=== PATIENT | female | born 1935 | race Caucasian/White ===

== ENCOUNTER 2016-03-31 12:05 | Outpatient (CLI) ==
--- NOTE | 2016-03-31 13:11 | US ---
EXAM: Right lower extremity venous Doppler sonogram. CLINICAL INDICATION: Right lower extremity pain and edema with varicose veins. FINDINGS: There is normal compression, spontaneous color Doppler flow and augmentation demonstrated between th e region of the trifurcation through to the right common femoral vein. The above knee portion of the right greater saphenous vein is patent. However, there is superficial thrombus within the right greater saphenous vein below the level of the knee. IMPRESSION: 1. No right lower extremity DVT. 2. The superficial thrombophlebitis within the right greater saphenous vein below the level of the knee.
== END 2016-03-31 12:06 | disposition home or self-care (01) ==
LOC: RAD 12:05
PROVIDERS: ATTEND Family Medicine
DX: M79.604 Pain in right leg (principal); R60.0 Localized edema; I83.90 Asymptomatic varicose veins of unspecified lower extremity; I80.9 Phlebitis and thrombophlebitis of unspecified site

== ENCOUNTER 2016-08-02 06:34 | Day surgery (SDC) ==
[2016-08-02] MEDS ORDERED: LIDOCAINE 1% 20 ML MDV ID ONE (07:26)
[2016-08-02] MEDS ORDERED: LIDOCAINE 1% 20 ML MDV ONE (07:26)
[2016-08-02] MEDS ORDERED: DIPRIVAN 20 ML VIAL IVP ONE (08:42)
[2016-08-02] MEDS ORDERED: VERSED ONE (08:42)
[2016-08-02 10:33] VITALS: BP 126/70; TEMP 97.9
--- NOTE | 2016-08-02 13:21 | OP ---
PROCEDURE: COLONOSCOPY TO THE CECUM WITH SNARE POLYPECTOMY. ENDOSCOPIST: Annette HERNANDEZ M.D. INDICATION: HISTORY OF ADENOMATOUS POLYPS/LAST EXAM PRIOR 5 YEARS PRIOR TO THIS DATE. INSTRUMENT: Betterment-190. MEDICATION: PER ANESTHESIA. PROCEDURE: The patient was positioned for colonoscopy. The digital rectal exam was negative. The colonoscope was inserted through the anus and advanced to the anastomosis. The patient has undergone prior right colectomy. There was a small polyp at 20 cm removed using snare cautery. The retroflex exam was otherwise normal. Withdrawal time 8 minutes and 27 seconds. PLAN: 1. Review pathology. 2. Repeat for surveillance in 5 years. CC: DR. SUDHAKAR CORRALES
== END 2016-08-02 10:00 | disposition home or self-care (01) ==
LOC: SURG 06:34
PROVIDERS: ATTEND Internal Medicine Gastroenterology
DX: Z09 Encounter for follow-up examination after completed treatment for conditions other than malignant neoplasm (principal); Z86.010 Personal history of colon polyps; D12.7 Benign neoplasm of rectosigmoid junction; K57.30 Diverticulosis of large intestine without perforation or abscess without bleeding; Z90.49 Acquired absence of other specified parts of digestive tract; Z98.0 Intestinal bypass and anastomosis status

== ENCOUNTER 2017-01-25 09:28 | Outpatient (CLI) ==
--- NOTE | 2017-01-26 09:12 | MAMMO ---
EXAM: Bilateral digital screening mammogram (2-D and 3-D) History: Screening Comparison: Bilateral mammogram 01/19/2016 Findings: MLO and CC views of bilateral breasts demonstrate scattered fibroglandular breast parenchy ma. CAD was reviewed by the radiologist. Tomosynthesis was performed. Stable benign bilateral vasc ular calcifications. Biopsy clip again seen within the left breast. There are no dominant masses, n o suspicious microcalcifications and no architectural distortions Impression: Benign stable mammogram. Recommend followup routine screening mammography in 1 year. BIRADS 2
== END 2017-01-25 09:29 | disposition home or self-care (01) ==
LOC: RAD 09:28
PROVIDERS: ATTEND Family Medicine
DX: Z12.31 Encounter for screening mammogram for malignant neoplasm of breast (principal)
CPT/HCPCS: 77067

== ENCOUNTER 2017-09-02 19:33 | Emergency (ER) ==
[2017-09-02 19:44] VITALS: BP 184/96; TEMP 98.5; BMI 21.9
[2017-09-02] MEDS ORDERED: ZOFRAN 4 MG/2 ML IM STA (19:57)
[2017-09-02] MEDS ORDERED: DEMEROL 50 MG/ML VIAL IM STA (19:57)
--- NOTE | 2017-09-02 20:40 | DI ---
And pelvis and bilateral hips. HISTORY: Left hip pain. FINDINGS: Fluid the pelvis. Lateral views both hips. There are no acute or healing fractures. The re are no lytic or blastic lesions. The soft tissues are normal. IMPRESSION: Normal bilateral hips.
--- NOTE | 2017-09-02 20:57 | ED.PDOC ---
General ED Provider: Dr. LISA LARES Chief Complaint: Hip Pain/Injury Stated Complaint: patient is doing pool therapy and after that she did the lawn mowing, then started having left hip pain. Took ASA, and Tylenol no help so came for the evaluation with daughter. Time Seen by Physician: 20:55 Mode of Arrival: Wheelchair Information Source: Patient Primary Care Provider: SUDHAKAR KIMBLE Nursing and Triage Documentation Reviewed and Agree: Yes Does patient meet sepsis criteria?: No If yes, has appropriate treatment been initiated?: No System Inflammatory Response Syndrome: Not Applicable Sepsis Protocol: For patient's 13 years and over: Temp is 96.8 and below OR 101 and greater Pulse >90 BPM Resp >20/minute Acutely Altered Mental Status Are patient's symptoms suggestive of a new infection, such as: -Pneumonia -Skin, Soft Tissue -Endocarditis -UTI -Bone, Joint Infection -Implantable Device -Acute Abdominal Infection -Wound Infection -Meningitis -Blood Stream Catheter Infection -Unknown Musculoskeletal Complaint Exam - Hip/Pelvis Complaint/Exam Location of Pain: Reports: Left Mechanism of Injury: Reports: No known trauma Symptoms Are: Still present Initial Severity: Moderate Current Severity: Moderate Location: Reports: Discrete Character: Reports: Aching Aggravating: Reports: Movement Alleviating: Reports: None Associated Signs and Symptoms: Denies: Swelling, Redness, Bruising, Fever, Weakness, Dizziness, Syncope, Abdominal pain, Knee pain Related History: Reports: Similar episode Able to Bear Weight: Yes Septic Arthritis Risk Factors: Reports: None Related Surgical History: Reports: None Tenderness: Present: Greater Trochanter Differential Diagnoses: Arthritis, Bursitis, Sprain Review of Systems - Review Of Systems Constitutional: Reports: No symptoms Eyes: Reports: No symptoms Ears, Nose, Mouth, Throat: Reports: No symptoms Respiratory: Reports: No symptoms Cardiac: Reports: No symptoms GI: Reports: No symptoms : Reports: No symptoms Musculoskeletal: Reports: Joint pain Skin: Reports: No symptoms Neurological: Reports: No symptoms Endocrine: Reports: No symptoms Hematologic/Lymphatic: Reports: No symptoms All Other Systems: Reviewed and Negative Past Medical History - Past Medical History Previously Healthy: Yes Endocrine: Reports: Hypothyroid Cardiovascular: Reports: Hypertension Respiratory: Reports: None Hematological: Reports: None Gastrointestinal: Reports: None Genitourinary: Reports: None Neuro/Psych: Reports: None Musculoskeletal: Reports: None Cancer: Reports: Colon Last Menstrual Period: unknown - Surgical History General Surgical History: Reports: Hysterectomy - Family History Family History: Reports: None - Social History Smoking Status: Never smoker Hx Substance Use: No Alcohol Screening: Occasionally Physical Exam - Physical Exam Appearance: Well-appearing, No pain distress, Well-nourished Eyes: SWAPNA, EOMI, Conjunctiva clear ENT: Ears normal, Nose normal, Oropharynx normal Respiratory: Airway patent, Breath sounds clear, Breath sounds equal, Respirations nonlabored Cardiovascular: RRR, Pulses normal, No rub, No murmur GI/: Soft, Nontender, No masses, Bowel sounds normal, No Organomegaly Musculoskeletal: Normal strength, No edema, No calf tenderness, Limited ROM, Limited strength Skin: Warm, Dry, Normal color Neurological: Sensation intact, Motor intact, Reflexes intact, Cranial nerves intact, Alert, Oriented Psychiatric: Affect appropriate, Mood appropriate Interpretation - Radiology Interpretation Radiology Interpretation By: Radiologist Radiology Results: Negative Critical Care Note - Critical Care Note Total Time (mins): 30 Course - Course Orders, Labs, Meds: Orders Category Date Time Status Meperidine HCl/Pf [Demerol 50 mg/ml Vial] MEDS 09/02/17 19:57 Discontinued 25 mg IM ONCE STA Ondansetron HCl/Pf [Zofran 4 mg/2 ml] MEDS 09/02/17 19:57 Discontinued 4 mg IM ONCE STA PELVIS & KAYLA HIPS Stat RADS 09/02/17 19:57 Completed Medications Discontinued Medications Generic Name Dose Route Start Last Admin Trade Name Freq PRN Reason Stop Dose Admin Meperidine HCl 25 mg 09/02/17 19:57 09/02/17 20:11 Demerol 50 Mg/Ml Vial IM 09/02/17 19:58 25 mg ONCE STA Administration Ondansetron HCl 4 mg 09/02/17 19:57 09/02/17 20:11 Zofran 4 Mg/2 Ml IM 09/02/17 19:58 4 mg ONCE STA Administration Vital Signs: Temp Pulse Resp BP Pulse Ox 09/02/17 19:34 98.5 F 74 20 184/96 H 96 Departure - Departure Time of Disposition: 20:57 Disposition: HOME SELF-CARE Discharge Problem: Hip pain Instructions: Hip Sprain (ED) Condition: Stable Pt referred to PMD for follow-up: Yes IPMP verified?: Yes Additional Instructions: Rest Hot pack f/u with PMD Prescriptions: Hydrocodone/Acetaminophen [[place] 5-325 Tablet] 1 tab PO TID PRN #10 tablet PRN Reason: PAIN Prednisone 10 mg PO BIDWM #14 tablet Allergies/Adverse Reactions: Allergies No Known Allergies Allergy (Verified 09/02/17 19:44) Home Medications: Ambulatory Orders Aspirin [[place] Aspirin] 81 mg PO DAILY 07/30/16 Hydrochlorothiazide 12.5 mg PO DAILY 07/30/16 Levothyroxine Sodium [Synthroid] 100 mcg PO QDAC 07/30/16 Quinapril HCl 5 mg PO DAILY 07/30/16 Hydrocodone/Acetaminophen [[place] 5-325 Tablet] 1 tab PO TID PRN #10 tablet 09/02 Prednisone 10 mg PO BIDWM #14 tablet 09/02/17 Disposition Discussed With: Patient, Family
== END 2017-09-02 21:09 | disposition home or self-care (01) ==
LOC: ED 19:33
DX: M25.552 Pain in left hip (principal)
CPT/HCPCS: 96372; 99282

== ENCOUNTER 2017-09-04 13:52 | Emergency (ER) ==
[2017-09-04 13:52] VITALS: BMI 21.9
[2017-09-04 13:59] VITALS: BP 169/90; TEMP 98.2
[2017-09-04] MEDS ORDERED: DILAUDID IM STA (14:07)
[2017-09-04] MEDS ORDERED: ZOFRAN 4 MG/2 ML IM STA (14:08)
--- NOTE | 2017-09-04 14:49 | CT ---
EXAM: CT lumbar spine without contrast HISTORY: Low back pain. TECHNIQUE: Multi-slice transaxial helical with coronal and sagittal reformatted views. COMPARISON: None FINDINGS: Straightening of the lumbar spine is seen. The visualized vertebral body heights appear preserved. Mild multilevel lumbar disc space narrowing is present. Moderate disc space narrowing is present at L5-S1. No significant listhesis or spondylolysis is seen. Mild multilevel lumbar facet osteoarthrit is is present. Small multilevel endplate osteophytosis is present. The visualized lung bases appear clear. Atherosclerosis is present. Surgical clips are seen within the upper abdomen. Otherwise the visualized retroperitoneum appears unremarkable. Segmental analysis: T12-L1: No significant central canal or neural foraminal stenosis. L1-L2: Minimal circumferential disc bulge is seen which minimally indents the ventral CSF space. No significant neural foraminal stenosis is seen. L2-L3: A small circumferential disc bulge is seen which results in mild narrowing of the central yazan l. Minimal bilateral neural foraminal narrowing is present. L3-L4: There is mild narrowing of the central canal secondary to circumferential disc bulge. Minimal bilateral neural foraminal narrowing is present. L4-L5: There is mild narrowing of the central canal secondary to circumferential disc bulge as well a s hypertrophic bilateral facet osteoarthritis and thickening of the ligamentum flavum. There is tria ngulation of the thecal sac. Minimal bilateral neural foraminal narrowing is present. L5-S1: Congenital shortening of the pedicles is seen which predisposes to a small central canal. The re is minimal narrowing of the central canal secondary to posterior disc osteophyte complex. Moderat e left and mild right neural foraminal narrowing is present. IMPRESSION: 1. No acute osseous abnormality. 2. Multilevel lumbar disc disease as detailed above, worst at L5-S1. 3. Mild multilevel central canal narrowing. 4. Multilevel neural foraminal narrowing, worst at L5-S1. 5. Mild multilevel lumbar facet osteoarthritis. 6. 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
--- NOTE | 2017-09-04 14:55 | CT ---
EXAM: Noncontrast CT pelvis. HISTORY: Left hip pain. Comparison: Plain films of the hip and pelvis from 09/02/2017. Technique: Noncontrast CT the pelvis was performed with axial coronal and sagittal reconstructions obtained. Findings: No definite acute fractures or dislocations are identified at the bony pelvis or bilateral hips. The bilateral hip joint spaces appear preserved. Mild degenerative irregularity is seen at the pubic sy mphysis. Mild degenerative sclerosis is seen at the bilateral sacroiliac joints. Degenerative franco es are seen at the lower lumbar spine. There is a sclerotic focus seen within the posterior aspect the left bony acetabulum measuring 8 mm i n diameter for instance at coronal image number 39. Surgical clips are seen at the right lower abdomen/pelvis. There is a 2.6 x 2.3 cm cystic structure seen at the right adnexal region of the pelvis in the expect ed distribution of the right ovary at axial image number 43. Device is seen within the central pelvis which may represent a pessary device. Soft tissue evaluation otherwise demonstrate soft tissue atherosclerotic arterial vascular calcificat ions. Suture material seen at the partially visualized colon. Impression: 1. No definite acute fractures or dislocations are identified at the bony pelvis or bilateral hips. 2. Degenerative changes as detailed. 3. Probable pessary device within the pelvis. 4. There is a 8 mm sclerotic focus seen within the posterior left bony acetabulum which may represent a prominent sized bone island but would recommend either interval follow up in [address] ability or bone scan correlation to exclude blastic activity to exclude any evidence of underlying bl astic lesion. 5. Postsurgical changes as detailed. 6. Right adnexal pelvic cystic structure measuring 2.6 x 2.3 cm in diameter. Recommend pelvic ultra sound follow- up evaluation and gynecology clinical follow-up evaluation to exclude any evidence of a cystic ovaria n neoplasm as the cause for an adnexal cystic structure in a post menopausal patient.
--- NOTE | 2017-09-04 15:44 | ED.PDOC ---
General ED Provider: Dr. STEFANIA UMANA-ER Chief Complaint: Hip Pain/Injury Stated Complaint: my back is hurting so bad i cant walki--i was put on steroids and pain meds 2 days ago and its getting worse Time Seen by Physician: 13:55 Mode of Arrival: Wheelchair Information Source: Patient, Family Exam Limitations: No limitations Primary Care Provider: SUDHAKAR JUNE Nursing and Triage Documentation Reviewed and Agree: Yes Does patient meet sepsis criteria?: No System Inflammatory Response Syndrome: Not Applicable Sepsis Protocol: For patient's 13 years and over: Temp is 96.8 and below OR 101 and greater Pulse >90 BPM Resp >20/minute Acutely Altered Mental Status Are patient's symptoms suggestive of a new infection, such as: -Pneumonia -Skin, Soft Tissue -Endocarditis -UTI -Bone, Joint Infection -Implantable Device -Acute Abdominal Infection -Wound Infection -Meningitis -Blood Stream Catheter Infection -Unknown Musculoskeletal Complaint Exam - Back Pain Complaint/Exam Mechanism of Injury: Reports: No known trauma Onset/Duration: several days Symptoms Are: Still present Timing: Constant Episodes Lasting: Days Initial Severity: Mild Current Severity: Severe Location: Reports: Discrete Character: Reports: Dull, Aching Aggravating: Reports: Movements, Lifting, Bending, Walking Alleviating: Reports: None Associated Signs and Symptoms: Reports: Numbness, Tingling Focal Tenderness: Yes Paraspinal Muscle Tenderness: No Paraspinal Muscle Spasm: No Scoliosis: No Lordosis: No Kyphosis: No SLR Test: Right Negative, Left Negative Hip Motion Testing Pain: Right Negative, Left Negative Focal Weakness: Present: None Focal Sensory Loss: Present: None Gait: Present: Unable Differential Diagnoses: Herniated Disk, Neoplasm Review of Systems - Review Of Systems Constitutional: Reports: No symptoms Eyes: Reports: No symptoms Ears, Nose, Mouth, Throat: Reports: No symptoms Respiratory: Reports: No symptoms Cardiac: Reports: No symptoms GI: Reports: No symptoms : Reports: No symptoms Musculoskeletal: Reports: Back pain Skin: Reports: No symptoms Neurological: Reports: No symptoms Endocrine: Reports: No symptoms Hematologic/Lymphatic: Reports: No symptoms All Other Systems: Reviewed and Negative Past Medical History - Past Medical History Previously Healthy: Yes Endocrine: Reports: Hypothyroid Cardiovascular: Reports: Hypertension Respiratory: Reports: None Hematological: Reports: None Gastrointestinal: Reports: None Genitourinary: Reports: None Neuro/Psych: Reports: None Musculoskeletal: Reports: None Cancer: Reports: Colon Last Menstrual Period: none - Surgical History General Surgical History: Reports: Hysterectomy - Family History Family History: Reports: None - Social History Smoking Status: Never smoker Hx Substance Use: No Alcohol Screening: None Physical Exam - Physical Exam Appearance: Well-appearing Pain Distress: Moderate Eyes: SWAPNA, EOMI, Conjunctiva clear ENT: Ears normal, Nose normal, Oropharynx normal Neck: Supple Respiratory: Airway patent, Breath sounds clear, Breath sounds equal, Respirations nonlabored Cardiovascular: RRR, Pulses normal, No rub, No murmur GI/: Soft Musculoskeletal: Limited ROM, Limited strength Skin: Warm, Dry, Normal color Neurological: Sensation intact, Motor intact, Reflexes intact, Cranial nerves intact, Alert, Oriented Psychiatric: Affect appropriate, Mood appropriate Interpretation - Radiology Interpretation Radiology Interpretation By: Radiologist Radiology Results: Negative Exam Interpreted: CT Scan Physician Notification - Case Discussed Physician Notified: dr [email or web address] Time of Notification: 14:00 Critical Care Note - Critical Care Note Total Time (mins): 0 Course - Course Orders, Labs, Meds: Orders Category Date Time Status Hydromorphone HCl [Dilaudid] MEDS 09/04/17 14:07 Discontinued 1 mg IM ONCE STA Ondansetron HCl/Pf [Zofran 4 mg/2 ml] MEDS 09/04/17 14:08 Discontinued 4 mg IM ONCE STA CT LUMBAR SPINE W/O CONTRAST Stat RADS 09/04/17 14:[address] PELVIS W/O CONTRAST Stat RADS 09/04/17 14:06 Completed Medications Discontinued Medications Generic Name Dose Route Start Last Admin Trade Name Freq PRN Reason Stop Dose Admin Hydromorphone HCl 1 mg 09/04/17 14:07 09/04/17 14:21 Dilaudid IM 09/04/17 14:08 1 mg ONCE STA Administration Ondansetron HCl 4 mg 09/04/17 14:08 09/04/17 14:24 Zofran 4 Mg/2 Ml IM 09/04/17 14:09 4 mg ONCE STA Administration Vital Signs: Temp Pulse Resp BP Pulse Ox 09/04/17 13:52 98.2 F 76 18 169/90 H 96 Departure - Departure Time of Disposition: 15:44 Disposition: TSF SHORT-TRM HOSP Discharge Problem: Sciatica Qualifiers: Laterality: unspecified laterality Qualified Code(s): M54.30 - Sciatica, unspecified side Instructions: Lumbar Radiculopathy (ED) Condition: Good Pt referred to PMD for follow-up: No IPMP verified?: No Allergies/Adverse Reactions: Allergies No Known Allergies Allergy (Verified 09/04/17 13:59) Home Medications: Ambulatory Orders Aspirin [[facility] Aspirin] 81 mg PO DAILY 07/30/16 Hydrochlorothiazide 12.5 mg PO DAILY 07/30/16 Levothyroxine Sodium [Synthroid] 100 mcg PO QDAC 07/30/16 Quinapril HCl 5 mg PO DAILY 07/30/16 Hydrocodone/Acetaminophen [[place] 5-325 Tablet] 1 tab PO TID PRN #10 tablet 09/02 Prednisone 10 mg PO BIDWM #14 tablet 09/02/17 Transfer Form Completed: Yes Disposition Discussed With: Patient, Family
== END 2017-09-04 16:08 | disposition short-term general hospital (02) ==
LOC: ED 13:52
DX: M54.30 Sciatica, unspecified side (principal)
CPT/HCPCS: 96372; 99285

== ENCOUNTER 2017-10-27 14:00 | Outpatient (RCR) ==
--- NOTE | 2017-10-05 08:10 | RS.OPPTEV2 ---
Date of Note: 10/03/17 Visit #: 1 Date of Evaluation: 10/03/17 Payer Source: MEDICARE Treatment Diagnosis: Left hip pain, Left LE paresthesia History of Condition/Mechanism of Injury:: Reports symptoms began approximately three weeks ago, after mowing her yard. After a few hours, she reports pain was so bad she couldn't get up. She was brought to the ER and received medication for pain. States her pain was worse and she returned to the ER two days later. Prior Level of Function.....Patient was independent with: ADL's, Self Care, Caregiving, Ambulation/Mobility, Community Integration/Access Functional Limitations: ADL's, Pushing, Pulling, Lifting, Sitting, Community Access/Integration Current Subjective/complaints:: Patient states left sided hip and LE symptoms began approximately three weeks ago. States at this time she still has some pain in the left hip area and constant numbness in the left foot. States she has not taken any pain medication in the last few days. States her sleep was limited due to pain until recently. She was taking a water aerobic class this summer, but she has stopped due to back pain. She feels that the left LE numbness gets worse when she lays down at night or sits for very long. States she has also noticed weakness in the left LE. She has stairs that lead to her basement and she has had difficulty managing the stairs. Treatment Side (optional): Left Medical History Medical History: Hypertension Surgical History: Hysterectomy Smoking Status: Never smoker Hx Home Medications: Gabapentin, Potassium. States she has not taken any pain medication in several days. Patient's Goals: Her goal is to get relief of left LE pain and numbness. Pain Assessment - Pain Description Pain Location: Left hip Current Pain Intensity: /10 Functional Outcome Measure Oswestry LBP: 22 - G Codes & Severity Modifier G Codes & Modifier: Mob current CJ. Mob goal CH Source of G Code score: Oswestry LBP scale Observation - Observation Posture: Forward Head, Rounded Shoulders, Decreased Lumbar Lordosis Gait - Gait Pattern Gait Comments: Patient ambulates without an assistive device, with decreased stance on the left LE. She reports she has been trying to walk "correctly", emphasizing heelstrike bilaterally. - ROM Comments: Patient denies pain in the lumbar spine with AROM.. Exhibits lumbar flexion with fingers reaching the tops of her feet. Lumbar extension is ~ 50% of normal ROM. Sidebending bilaterally ~75% of normal range. Bilateral LE AROM is WFL's. - Strength Comments: Bilateral LE strength is 4+ to 5/5 throughout. Trunk strength 4 to 4 +/5. - Special Tests ELIDA Test: Negative Left, Negative Right SLR Test: Negative Left, Negative Right Seated Dural Stretch Test: Negative Left, Negative Right SI Joint Compression: Negative SI Joint Distraction: Negative Palpation Comments:: Patient reports tenderness over the left Piriformis. Mild tenderness throughout the lateral aspect of the left gluteal musculature. No tenderness over the left SI joint. Also no tenderness with Central PA's along the lumbar spine. Sensation - Sensation Comments: Patient reports entire left foot is numb. States it is more numb along the lateral side of the ankle and foot. Reports forefoot and toes are completely numb on the left. Additional Comments: Additional Comments: SLR in supine: right 40 degrees, left 45 degrees. Interventions - Exercise/Activities/Manual Therapy Exercises/Activities: Patient instructed in SKTC and Piriformis stretch. Reviewed appropriate amount of time to hold the stretch . Total minutes of Exercise: X 10 mins Manual Therapy: Soft tissue mobilization over tender area over Piriformis ~ 60- 90 secs. HOME EXERCISE PROGRAM: SKTC and Piriformis stretch - Charges Timed Code Treatment Minutes: 10 mins Total Treatment Time: 48 mins Procedures billed for this date of service:: EVAL Low EVALUATION COMPLEXITY LEVEL EVALUATION COMPLEXITY LEVEL: HISTORY: Low, EXAM OF BODY SYSTEMS: Low, CLINICAL PRESENTATION: Low, CLINICAL DECISION MAKING: Low Assessment Assessment: Patient presents to therapy with a diagnosis of left sided low back and sciatica pain. She reports left hip pain, and numbness in the left foot and ankle. She exhibits an active trigger point in the left Piriformis muscle and bilaterally tight HS. Following stretching and minimal soft tissue work to the left Piriformis, patient reports feeling better. She demonstrates potential to beneft from stretching to the HS and Piriformis and manual therapy and/or modalities to the left Piriformis region to relieve her symptoms. Patient Education: Education of diagnosis, Body/Joint mechanics, Home Exercise Program, Home Safety, Activity Modification, Education of Plan of Care Rehab Potential: Good Short Term Goals Goal #1: Patient independent and compliant with HEP. Goal to be met by: 10/18/17 Goal #2: Billateral SLR to 50 degrees. Goal to be met by: 10/18/17 Goal #3: Tenderness at left Piriformis decreased to minimal. Goal to be met by: 10/18/17 Goal #4: Patient to demo. good understanding of back safety and body mechanics Goal to be met by: 10/18/17 Residential Goals Goal #1: Pt knows HEP and to continue ex's to maintain functional level at D/C. Goal to be met by: 11/08/17 Goal #2: Score on Oswestry LBP scale improved to 0. Goal to be met by: 11/08/17 Goal #3: Pt able to return to yard work/mowing without left LE symptoms. Goal to be met by: 11/08/17 Goal #4: Pt able to tolerate prolonged positions of sitting without left LE symptoms Goal to be met by: 11/08/17 Plan - Treatment to be Provided Procedures: Therapeutic Exercises, Therapeutic Activity, Manual Therapy, Patient Education Modalities: Electrical Stimulation, Ultrasound/Phonophoresis, Cryotherapy, Hot Packs - Treatment Plan Frequency: 2-3 X week Duration: 4 weeks ORDER # VISITS AND/OR THROUGH DATE: 11/08/17 - Treatment Code (1) Sciatica Code(s): M54.30 - SCIATICA, UNSPECIFIED SIDE Qualifiers: Laterality: left Qualified Code(s): M54.32 - Sciatica, left side (2) Hip pain Code(s): M25.559 - PAIN IN UNSPECIFIED HIP Qualifiers: Laterality: left Qualified Code(s): M25.552 - Pain in left hip
--- NOTE | 2017-10-10 16:19 | RS.OPPTDN ---
Subjective Date of Note: 10/10/17 Visit #: 3 Date of Evaluation: 10/03/17 Payer Source: MEDICARE Treatment Diagnosis: Left hip pain, Left LE paresthesia Current Subjective/complaints:: Patient reports reduction in left hip pain and numbness in the left lateral foot following exercise and modalities today. Pain Assessment - Pain Description Pain Location: Left piriformis region and lateral left foot Current Pain Intensity: mild to mod - Treatment Modality: US with ES (Comb.) Parameters/Method Applied: [id number] US at 1.5w/cm2 and Estim to 13p.v. to the left gluteal region. Patient Position: Right Sidelying Interventions - Exercise/Activities/Manual Therapy Exercises/Activities: Patient received passive stretching bilaterally of SKTC, HS, Piriformis, Fig 4, lower trunk rotation, heel cord. Began bridging. Isometric hip flexion in right and isometric hip extension on left for MET. Total minutes of Exercise: 25mins Manual Therapy: Trigger point release to the left piriformis. Total minutes of Manual Therapy: 4mins HOME EXERCISE PROGRAM: SKTC and Piriformis stretch - Charges Timed Code Treatment Minutes: 39mins Total Treatment Time: 42mins Procedures billed for this date of service:: EX2, USCOM Assessment: Patient responds well today treatment today with reports of reduction in pain. Patient Education: Education of diagnosis, Body/Joint mechanics, Home Exercise Program, Activity Modification Comments: Patient education of pelvic malalignment and corrective exercise. Also tips for home and safety with transfering in and out of truck. Patient demonstrates compliance with HEP?: Yes Short Term Goals Goal #1: Patient independent and compliant with HEP. Goal to be met by: 10/18/17 Progress towards Goal:: Progressing Goal #2: Billateral SLR to 50 degrees. Goal to be met by: 10/18/17 Progress towards Goal:: Progressing Goal #3: Tenderness at left Piriformis decreased to minimal. Goal to be met by: 10/18/17 Progress towards Goal:: Progressing Goal #4: Patient to demo. good understanding of back safety and body mechanics Goal to be met by: 10/18/17 Progress towards Goal:: Progressing Custodial Goals Goal #1: Pt knows HEP and to continue ex's to maintain functional level at D/C. Goal to be met by: 11/08/17 Goal #2: Score on Oswestry LBP scale improved to 0. Goal to be met by: 11/08/17 Goal #3: Pt able to return to yard work/mowing without left LE symptoms. Goal to be met by: 11/08/17 Goal #4: Pt able to tolerate prolonged positions of sitting without left LE symptoms Goal to be met by: 11/08/17 Plan PLAN OF CARE EXPIRES ON:: 11/08/17 ORDER # VISITS AND/OR THROUGH DATE: 11/08/17 PLAN: Continue modalities and exercise to reduce pain and increase functional activity level.
--- NOTE | 2017-10-11 13:29 | RS.OPPTDN ---
Subjective Date of Note: 10/05/17 Visit #: 2 Date of Evaluation: 10/03/17 Payer Source: MEDICARE Treatment Diagnosis: Left hip pain, Left LE paresthesia Current Subjective/complaints:: Patient says her pain is not bad today. Rates 1 -2/10. Reports treatment at [facility] seemed to really help her. She says that she is working on HEP. - Treatment Modality: Ultrasound Parameters/Method Applied: continuous @ 1.5 w/cm2 x 10 mins to the L piriformis Patient Position: Right Sidelying - Heat/Cryotherapy Treatment: Hot Pack (15 mins angled over the L hip/piriformis/LB in sidelying) Interventions - Exercise/Activities/Manual Therapy Exercises/Activities: Patient received passive stretching bilaterally, but with focus to the L: SKTC, HS, Piriformis, Fig 4, lower trunk rotation, heel cord x 3. Patient receives education of diagnosis, body mechanics, and HEP review. Total minutes of Exercise: 16 Manual Therapy: na HOME EXERCISE PROGRAM: SKTC and Piriformis stretch - Charges Timed Code Treatment Minutes: 28 Total Treatment Time: 43 Procedures billed for this date of service:: hp, u/s, ex Assessment: Patient compliant with HEP. Presents with low pain level today isolated to the L piriformis and further improves with treatment today. She should benefit from further modalities, stretching, and progress to stability exercises. Patient Education: Education of diagnosis, Body/Joint mechanics, Home Exercise Program, Education of Plan of Care Patient demonstrates compliance with HEP?: Yes Short Term Goals Goal #1: Patient independent and compliant with HEP. Goal to be met by: 10/18/17 Progress towards Goal:: Progressing Goal #2: Billateral SLR to 50 degrees. Goal to be met by: 10/18/17 Progress towards Goal:: Progressing Goal #3: Tenderness at left Piriformis decreased to minimal. Goal to be met by: 10/18/17 Goal #4: Patient to demo. 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 Goal to be met by: 11/08/17 Goal #2: Score on Oswestry LBP scale improved to 0. Goal to be met by: 11/08/17 Goal #3: Pt able to return to yard work/mowing without left LE symptoms. Goal to be met by: 11/08/17 Goal #4: Pt able to tolerate prolonged positions of sitting without left LE symptoms Goal to be met by: 11/08/17 Plan PLAN OF CARE EXPIRES ON:: 11/08/17 ORDER # VISITS AND/OR THROUGH DATE: 11/08/17 PLAN: Patient to continue for modalities and therex to improve pain, flexibility , and strength.
--- NOTE | 2017-10-13 16:11 | RS.OPPTDN ---
Subjective Date of Note: 10/13/17 Visit #: 4 Date of Evaluation: 10/03/17 Payer Source: MEDICARE Treatment Diagnosis: Left hip pain, Left LE paresthesia Current Subjective/complaints:: Patient reports left hip pain is better and her walking has improved. She initially reports left lateral foot numbness continues , then states it may be a little better. Pain Assessment - Pain Description Pain Location: Left hip Pain Description: Tightness Pain Description: soreness Current Pain Intensity: mild, mod with palpation - Treatment Modality: Ultrasound Parameters/Method Applied: [id number] at 1.5w/cm2 to the left gluteal area with focus along the piriformis. Patient Position: Right Sidelying Interventions - Exercise/Activities/Manual Therapy Exercises/Activities: Assisted with passive stretching of bilateral SKTC, HS, Piriformis, Fig 4, lower trunk rotation, heel cords. Isometric hip flexion, pelvic tilts, and bridging. Isometric hip extension on the left for MET and alignment of the pelvis. Isometric hip add in hook-lying and isometric ankle inversion, both with ball. Red theraband for resistive ankle df, bilaterally. SLR. All 2s/10reps. Discussion of education of diagnosis, body mechanics, and HEP. Total minutes of Exercise: 29mins Manual Therapy: na HOME EXERCISE PROGRAM: SKTC and Piriformis stretch - Charges Timed Code Treatment Minutes: 39mins Total Treatment Time: 43mins Procedures billed for this date of service:: EX2, US Assessment: Patient responding well to treatment and exercise with reports of decreased left hip pain, improved walking, and slight decrease in left foot numbness. Patient Education: Body/Joint mechanics, Home Exercise Program Comments: Education of safety with daily activities and use of body mechanics. Patient demonstrates compliance with HEP?: Yes Short Term Goals Goal #1: Patient independent and compliant with HEP. Goal to be met by: 10/18/17 Progress towards Goal:: Partially Met Goal #2: Billateral SLR to 50 degrees. Goal to be met by: 10/18/17 Progress towards Goal:: Partially Met Goal #3: Tenderness at left Piriformis decreased to minimal. Goal to be met by: 10/18/17 Progress towards Goal:: Partially Met Goal #4: Patient to demo. good understanding of back safety and body mechanics Goal to be met by: 10/18/17 Progress towards Goal:: Progressing Senior Care Goals Goal #1: Pt knows HEP and to continue ex's to maintain functional level at D/C. Goal to be met by: 11/08/17 Progress towards goal: Progressing Goal #2: Score on Oswestry LBP scale improved to 0. Goal to be met by: 11/08/17 Goal #3: Pt able to return to yard work/mowing without left LE symptoms. Goal to be met by: 11/08/17 Goal #4: Pt able to tolerate prolonged positions of sitting without left LE symptoms Goal to be met by: 11/08/17 Plan PLAN OF CARE EXPIRES ON:: 11/08/17 ORDER # VISITS AND/OR THROUGH DATE: 11/08/17 PLAN: Continue modaliites and progress exercise to reduce pain and increase functional activity level.
--- NOTE | 2017-10-17 16:20 | RS.OPPTDN ---
Subjective Date of Note: 10/17/17 Visit #: 5 Date of Evaluation: 10/03/17 Payer Source: MEDICARE Treatment Diagnosis: Left hip pain, Left LE paresthesia Current Subjective/complaints:: Patient reports left hip pain has improved and she feels like she is walking better. States she is trying to get outside and walk short distances everyday, and is consistently doing HEP. Pain Assessment - Pain Description Pain Location: left hip, left lasteral foot Pain Description: soreness Current Pain Intensity: mild left hip/piriformis area Other Comments regarding Pain:: Continues to have slight numbness left lateral foot, but states it seems to be getting better. - Treatment Modality: Ultrasound Parameters/Method Applied: [id number] US at 1.5w/cm2 to the left S-I and gluteal region with focus along the piriformis. Patient Position: Right Sidelying - Heat/Cryotherapy Treatment: Hot Pack ([id number] to LB and hips prior to US and EX. Patient in supine. ) Interventions - Exercise/Activities/Manual Therapy Exercises/Activities: Assisted with passive stretching of bilateral SKTC, HS, Piriformis, Fig 4, lower trunk rotation, heel cords. Isometric hip flexion, pelvic tilts, and bridging. Isometric hip extension on the left and isometric hip flexion in right for MET and alignment of the pelvis. Isometric hip add in hook-lying. Patient education of body mechanics and safety with ADL's. Total minutes of Exercise: 17mins Manual Therapy: na HOME EXERCISE PROGRAM: SKTC and Piriformis stretch, figure 4, and LTR. Isometric hip add and bridging. - Charges Timed Code Treatment Minutes: 27mins Total Treatment Time: 47mins Procedures billed for this date of service:: HP, US, EX Assessment: Patient responding well to treatment with reports of reduction in pain and improvement in ambulation. Patient Education: Education of diagnosis, Body/Joint mechanics, Home Exercise Program, Activity Modification Patient demonstrates compliance with HEP?: Yes Short Term Goals Goal #1: Patient independent and compliant with HEP. Goal to be met by: 10/18/17 Progress towards Goal:: Partially Met Goal #2: Billateral SLR to 50 degrees. Goal to be met by: 10/18/17 Progress towards Goal:: Partially Met Goal #3: Tenderness at left Piriformis decreased to minimal. Goal to be met by: 10/18/17 Progress towards Goal:: Partially Met Goal #4: Patient to demo. good understanding of back safety and body mechanics Goal to be met by: 10/18/17 Progress towards Goal:: Progressing Group Home Goals Goal #1: Pt knows HEP and to continue ex's to maintain functional level at D/C. Goal to be met by: 11/08/17 Progress towards goal: Progressing Goal #2: Score on Oswestry LBP scale improved to 0. Goal to be met by: 11/08/17 Goal #3: Pt able to return to yard work/mowing without left LE symptoms. Goal to be met by: 11/08/17 Goal #4: Pt able to tolerate prolonged positions of sitting without left LE symptoms Goal to be met by: 11/08/17 Plan PLAN OF CARE EXPIRES ON:: 11/08/17 ORDER # VISITS AND/OR THROUGH DATE: 11/08/17 PLAN: Continue modalities and progress exericse to promote pelvic alignment, reduce pain, and increase functional activity level.
--- NOTE | 2017-10-24 08:36 | RS.OPPTDN ---
Subjective Date of Note: 10/20/17 Visit #: 6 Date of Evaluation: 10/03/17 Payer Source: MEDICARE Treatment Diagnosis: Left hip pain, Left LE paresthesia Current Subjective/complaints:: Patient reports she has seen progress with left hip pain. Also, numbness in the left lateral foot seems to be less. Pain Assessment - Pain Description Pain Location: left hip, S-I joint region Pain Description: Aching Pain Description: soreness Current Pain Intensity: mild Other Comments regarding Pain:: Increases with some activity - Treatment Modality: Ultrasound Parameters/Method Applied: [id number] US at 1.5w/cm2 to the left S-I joint region, along the piriformis prior to EX Patient Position: Right Sidelying - Heat/Cryotherapy Treatment: Hot Pack ([id number] to the lowback and hips prior to US. Patient in supine. ) Interventions - Exercise/Activities/Manual Therapy Exercises/Activities: Assisted with passive stretching of bilateral SKTC, HS, Piriformis, Fig 4, and heel cords. Isometric hip flexion, pelvic tilts, and bridging. Isometric hip extension on the left and isometric hip flexion in right for MET and alignment of the pelvis. Isometric hip add in hook-lying. Patient requires cues for proper position and muscle engagement with pelvic stability and MET exercises. Total minutes of Exercise: 17mins Manual Therapy: na HOME EXERCISE PROGRAM: SKTC and Piriformis stretch, figure 4, and LTR. Isometric hip add and bridging. - Objective Findings Observations,measurements,etc.: Patients gait pattern improving with a reduction in upper body lateral weight-shift due to "limp" on left LE. - Charges Timed Code Treatment Minutes: 27mins Total Treatment Time: 49mins Procedures billed for this date of service:: HP, US, EX Assessment: Patient responding well to treatment and exercise with reports of reduction in pain and improvement in gait pattern. Patient Education: Body/Joint mechanics, Home Exercise Program, Activity Modification Comments: Progressive instruction to facilitate stability and pelvic alignment. Patient demonstrates compliance with HEP?: Yes Short Term Goals Goal #1: Patient independent and compliant with HEP. Goal to be met by: 10/18/17 Progress towards Goal:: Partially Met Goal #2: Billateral SLR to 50 degrees. Goal to be met by: 10/18/17 Progress towards Goal:: Partially Met Goal #3: Tenderness at left Piriformis decreased to minimal. Goal to be met by: 10/18/17 Progress towards Goal:: Partially Met Goal #4: Patient to demo. good understanding of back safety and body mechanics Goal to be met by: 10/18/17 Progress towards Goal:: Progressing Usp Goals Goal #1: Pt knows HEP and to continue ex's to maintain functional level at D/C. Goal to be met by: 11/08/17 Progress towards goal: Progressing Goal #2: Score on Oswestry LBP scale improved to 0. Goal to be met by: 11/08/17 Goal #3: Pt able to return to yard work/mowing without left LE symptoms. Goal to be met by: 11/08/17 Goal #4: Pt able to tolerate prolonged positions of sitting without left LE symptoms Goal to be met by: 11/08/17 Plan PLAN OF CARE EXPIRES ON:: 11/08/17 ORDER # VISITS AND/OR THROUGH DATE: 11/08/17 PLAN: Progress treatment to reduce pain and increase patients functional activity level.
--- NOTE | 2017-10-24 16:27 | RS.OPPTDN ---
Subjective Date of Note: 10/24/17 Visit #: 7 Date of Evaluation: 10/03/17 Payer Source: MEDICARE Treatment Diagnosis: Left hip pain, Left LE paresthesia Current Subjective/complaints:: Patient reports left hip pain increased yesterday, but she reports she may have done too much exercise. States she is much better overall. Pain Assessment - Pain Description Pain Location: Left gluteal area, left lateral foot Pain Description: soreness Current Pain Intensity: mild, mod with manual pressure Other Comments regarding Pain:: Left lateral foot mild numbness. - Treatment Modality: Ultrasound Parameters/Method Applied: [id number] at 1.5w/cm2 to the left S-I and upper glut area prior to EX. Patient Position: Right Sidelying - Heat/Cryotherapy Treatment: Hot Pack ([id number] to the LB and hips prior to US and EX. Patient in supine. ) Interventions - Exercise/Activities/Manual Therapy Exercises/Activities: Assisted with passive stretching of bilateral SKTC, HS, Piriformis, Fig 4, and heel cords. Isometric hip flexion, pelvic tilts, and bridging. Isometric hip extension on the left and isometric hip flexion in right for MET/pelvic alignment. Manually resisted hip flexion and then isometric hip abd, both in 90/90 position, 4s/5reps each. Isometric hip add in hook-lying. Patient requires cues for proper position and muscle engagement with exercise. Total minutes of Exercise: 14mins Manual Therapy: na HOME EXERCISE PROGRAM: SKTC and Piriformis stretch, figure 4, and LTR. Isometric hip add and bridging. - Charges Timed Code Treatment Minutes: 24mins Total Treatment Time: 39mins Procedures billed for this date of service:: HP, US, EX Assessment: Patient continues to reports progress. Has had some flair-up but is due to increased activity. Patient Education: Body/Joint mechanics, Home Exercise Program, Activity Modification Patient demonstrates compliance with HEP?: Yes Short Term Goals Goal #1: Patient independent and compliant with HEP. Goal to be met by: 10/18/17 Progress towards Goal:: Partially Met Goal #2: Billateral SLR to 50 degrees. Goal to be met by: 10/18/17 Progress towards Goal:: Partially Met Goal #3: Tenderness at left Piriformis decreased to minimal. Goal to be met by: 10/18/17 Progress towards Goal:: Partially Met Goal #4: Patient to demo. good understanding of back safety and body mechanics Goal to be met by: 10/18/17 Progress towards Goal:: Progressing Usp Goals Goal #1: Pt knows HEP and to continue ex's to maintain functional level at D/C. Goal to be met by: 11/08/17 Progress towards goal: Progressing Goal #2: Score on Oswestry LBP scale improved to 0. Goal to be met by: 11/08/17 Goal #3: Pt able to return to yard work/mowing without left LE symptoms. Goal to be met by: 11/08/17 Goal #4: Pt able to tolerate prolonged positions of sitting without left LE symptoms Goal to be met by: 11/08/17 Plan PLAN OF CARE EXPIRES ON:: 11/08/17 ORDER # VISITS AND/OR THROUGH DATE: 11/08/17 PLAN: Progress with exercise to increase functional activity level.
--- NOTE | 2017-10-28 10:48 | RS.OPPTDN ---
Subjective Date of Note: 10/27/17 Visit #: 8 Date of Evaluation: 10/03/17 Payer Source: MEDICARE Treatment Diagnosis: Left hip pain, Left LE paresthesia Current Subjective/complaints:: Patient reports she is doing much better. She reports she had done some yardwork and is consistently working on HEP. States she feels like she is ready to stop PT at this time. Pain Assessment - Pain Description Pain Location: Left hip Current Pain Intensity: mild Other Comments regarding Pain:: Mild to mod soreness at left piriformis with strong manual pressure. States left foot numbness is present but much better. - Heat/Cryotherapy Treatment: Hot Pack (20mins to lowback and hips prior to EX. Patient in supine. ) Interventions - Exercise/Activities/Manual Therapy Exercises/Activities: Assisted with passive stretching of bilateral SKTC, HS, Piriformis, Fig 4, and heel cords. Isometric hip flexion, pelvic tilts, and bridging. Isometric hip extension on the left and isometric hip flexion in right for MET/pelvic alignment. Isometric hip flexion and then isometric hip abd , both in 90/90 position, 4s/5reps each. Isometric hip add in hook-lying. Verbal cues for proper position and muscle engagement with exercise. Finalized all patient education of dx, body mechanics, safe lifting, posture, and HEP. Total minutes of Exercise: 24mins Manual Therapy: na HOME EXERCISE PROGRAM: SKTC and Piriformis stretch, figure 4, and LTR. Isometric hip add and bridging. - Charges Timed Code Treatment Minutes: 24mins Total Treatment Time: 44mins Procedures billed for this date of service:: HP, EX2 Assessment: Patient has progressed well and reports a decrease in pain and increase in functional activity level. She has met 5 of 8 treatment goals and will continue HEP following discharge. Patient Education: Education of diagnosis, Body/Joint mechanics, Home Exercise Program, Home Safety, Activity Modification Patient demonstrates compliance with HEP?: Yes Short Term Goals Goal #1: Patient independent and compliant with HEP. Goal to be met by: 10/18/17 Progress towards Goal:: Met Goal #2: Billateral SLR to 50 degrees. Goal to be met by: 10/18/17 Progress towards Goal:: Met Goal #3: Tenderness at left Piriformis decreased to minimal. Goal to be met by: 10/18/17 Progress towards Goal:: Met Goal #4: Patient to demo. good understanding of back safety and body mechanics Goal to be met by: 10/18/17 Progress towards Goal:: Met Snf Goals Goal #1: Pt knows HEP and to continue ex's to maintain functional level at D/C. Goal to be met by: 11/08/17 Progress towards goal: Met Goal #2: Score on Oswestry LBP scale improved to 0. Goal to be met by: 11/08/17 Progress towards goal: Partially Met Goal #3: Pt able to return to yard work/mowing without left LE symptoms. Goal to be met by: 11/08/17 Progress towards goal: Progressing Goal #4: Pt able to tolerate prolonged positions of sitting without left LE symptoms Goal to be met by: 11/08/17 Progress towards goal: Progressing Plan PLAN OF CARE EXPIRES ON:: 11/08/17 ORDER # VISITS AND/OR THROUGH DATE: 11/08/17 PLAN: Discharge with HEP.
== END 2017-10-28 23:59 ==
PROVIDERS: ATTEND Neurological Surgery
DX: M54.32 Sciatica, left side (principal); M25.552 Pain in left hip

== ENCOUNTER 2018-03-15 12:37 | Outpatient (CLI) ==
[2017-09-04 13:59] VITALS: BMI 21.9
--- NOTE | 2018-03-17 08:39 | MAMMO ---
EXAM: Bilateral digital screening mammogram (2-D and 3-D) History: Screening Comparison: Bilateral mammogram 01/25/2017 Findings: MLO and CC views of bilateral breasts demonstrate scattered fibroglandular breast parenchy ma. CAD was reviewed by the radiologist. Tomosynthesis was performed. Biopsy clip again seen withi n the left breast. Stable benign bilateral vascular calcifications. There are no suspicious masses, no abnormal microcalcifications and no architectural distortions Impression: Benign stable mammogram. Recommend followup routine screening mammography in 1 year. BIRADS 2, benign
== END 2018-03-15 12:38 | disposition home or self-care (01) ==
LOC: RAD 12:37
PROVIDERS: ATTEND Family Medicine
DX: Z12.31 Encounter for screening mammogram for malignant neoplasm of breast (principal)